=== PATIENT | female | born 1995 | race Caucasian/White ===

== ENCOUNTER → 2024-01-02 18:48 | Outpatient (REF) | payer BC, SELFPAY | LOC: CPAP 18:48 | PROVIDERS: ATTENDING PHYSICIAN Obstetrics & Gynecology | DX: Z01.419 Encounter for gynecological examination (general) (routine) without abnormal findings (principal); Z12.4 Encounter for screening for malignant neoplasm of cervix | CPT/HCPCS: G0123 ==

== ENCOUNTER → 2024-02-18 08:24 | Outpatient (REF) | payer BC, SELFPAY ==
[2024-02-18 10:16] LABS: TSH Reflex To Free T4 3.63 uIU/ml (0.47-4.68)
== END ==
LOC: REG 08:24
PROVIDERS: ATTENDING PHYSICIAN Physician Assistant
DX: E06.3 Autoimmune thyroiditis (principal)
CPT/HCPCS: 36415; 84443

== ENCOUNTER → 2024-09-03 06:38 | Outpatient (REF) | payer BC, SELFPAY ==
[2024-09-03 07:33] LABS: HCG, Serum Qualitative Screen Positive
[2024-09-03 07:55] LABS: Beta HCG Quantitative 73.05 mIU/ml
== END ==
LOC: REG 06:38
PROVIDERS: ATTENDING PHYSICIAN Physician Assistant; OTHER PHYSICIAN Obstetrics & Gynecology
DX: Z32.01 Encounter for pregnancy test, result positive (principal)
CPT/HCPCS: 36415; 84702; 84703

== ENCOUNTER → 2024-09-06 11:24 | Outpatient (REF) | payer BC, SELFPAY ==
[2024-09-06 13:35] LABS: Beta HCG Quantitative 499.71 mIU/ml
== END ==
LOC: REG 11:24
PROVIDERS: ATTENDING PHYSICIAN Physician Assistant
DX: Z32.01 Encounter for pregnancy test, result positive (principal)
CPT/HCPCS: 36415; 84702

== ENCOUNTER → 2024-09-12 06:33 | Outpatient (REF) | payer BC, SELFPAY | LOC: REG 06:33 | PROVIDERS: ATTENDING PHYSICIAN Physician Assistant; OTHER PHYSICIAN Obstetrics & Gynecology | DX: Z34.91 Encounter for supervision of normal pregnancy, unspecified, first trimester (principal) | CPT/HCPCS: 84702 ==

== ENCOUNTER → 2024-10-01 16:27 | Outpatient (REF) | payer BC, SELFPAY | LOC: CPAP 16:27 | PROVIDERS: ATTENDING PHYSICIAN Nurse Practitioner Family | DX: Z11.3 Encounter for screening for infections with a predominantly sexual mode of transmission (principal) | CPT/HCPCS: 87491; 87591 ==

== ENCOUNTER → 2024-10-02 06:42 | Outpatient (REF) | payer BC, SELFPAY ==
[2024-10-02 07:54] LABS: % Basophils 0.5 % (0-2); % Eosinophils 2.2 % (0-6); % Immature Granulocytes 0.4 % (0-0.5); % Lymphocytes 21.9 % (20.5-51.1); % Monocytes 6.5 % (1.7-9.3); % Neutrophils 68.5 % (42.2-75.2); Absolute Eosinophils 0.2 10^3/uL (0-0.7); Absolute Lymphocytes 1.6 10^3/uL (1.2-3.4); Absolute Monocytes 0.5 10^3/uL (0.1-0.6); Absolute Neutrophils 5.1 10^3/uL (1.4-6.5); Hematocrit 36.4 % (37.0-47.0); Hemoglobin 12.3 g/dL (12.0-16.0); Mean Corp Hgb Conc. 33.8 g/dL (33.0-37.0); Mean Corpuscular Hgb 29.8 pg (27.0-31.0); Mean Corpuscular Volume 88.1 fL (81.0-99.0); Mean Platelet Volume 10.1 fL (7.4-10.4); Nucleated Red Blood Cells % 0 %; Platelet Count 250 10^3/uL (130-400); Red Blood Cell Count 4.13 10^6/uL (4.20-5.40); Red Cell Dist. Width 12.5 % (11.5-14.5); White Blood Cell Count 7.4 10^3/uL (4.8-10.8)
[2024-10-02 08:13] LABS: Urine Albumin Negative (Neg - Trace); Urine Bilirubin Negative (Negative); Urine Character Clear (Clear); Urine Color Yellow; Urine Glucose Negative (Negative); Urine Ketone Negative (Negative); Urine Leukocyte 2+ (Negative); Urine Nitrite Negative (Negative); Urine Occult Blood Negative (Negative); Urine Urobilinogen Negative (Neg - 1+); Urine pH 6.5 (5.0-9.0)
[2024-10-02 08:32] LABS: Free T4 0.97 ng/dl (0.78-2.19)
[2024-10-02 08:38] LABS: Urine Mucus Moderate; Urine Squamous Cell 16-20 /LPF (Few); Urine Urothelial Cell 0-2 /LPF (FEW)
[2024-10-02 08:39] LABS: Urine Red Blood Cell 0-2 /HPF (0-2)
[2024-10-02 08:40] LABS: Urine Bacteria Many (Negative)
[2024-10-02 08:46] LABS: TSH 4.74 uIU/ml (0.47-4.68)
[2024-10-02 10:27] LABS: Glycohemoglobin (HgbA1c) 4.8 % (4.0-5.6)
[2024-10-02 12:32] LABS: Rubella Positive
[2024-10-02 12:38] LABS: Syphilis/T. pallidum Ab Reflex Negative (Negative)
[2024-10-02 20:41] LABS: Hepatitis B Surface Antigen Negative (Negative)
== END ==
LOC: REG 06:42
PROVIDERS: ATTENDING PHYSICIAN Nurse Practitioner Family; FAMILY PHYSICIAN Physician Assistant
DX: Z32.01 Encounter for pregnancy test, result positive (principal)
CPT/HCPCS: 80055; 81003; 81015; 83036; 84439; 84443; 84702; 87389

== ENCOUNTER → 2024-10-29 13:37 | Outpatient (REF) | payer BC, SELFPAY ==
[2024-10-29 16:21] LABS: TSH 2.08 uIU/ml (0.47-4.68)
== END ==
LOC: PNTC 13:37
PROVIDERS: ATTENDING PHYSICIAN Student in an Organized Health Care Education/Training Program; FAMILY PHYSICIAN Physician Assistant
DX: Z36.0 Encounter for antenatal screening for chromosomal anomalies (principal); Z36.82 Encounter for antenatal screening for nuchal translucency
CPT/HCPCS: 36415; 76801; 76813; 84443; 86850; 86900; 86901

== ENCOUNTER → 2024-12-24 14:50 | Outpatient (REF) | payer BC, SELFPAY | LOC: PNTC 14:50 | PROVIDERS: ATTENDING PHYSICIAN Student in an Organized Health Care Education/Training Program | DX: O99.210 Obesity complicating pregnancy, unspecified trimester (principal) | CPT/HCPCS: 76811 ==

== ENCOUNTER → 2025-01-09 11:23 | Outpatient (REF) | payer BC, SELFPAY | LOC: PNTC 11:23 | PROVIDERS: ATTENDING PHYSICIAN Student in an Organized Health Care Education/Training Program | DX: O99.210 Obesity complicating pregnancy, unspecified trimester (principal) | CPT/HCPCS: 76815 ==

== ENCOUNTER → 2025-02-02 08:01 | Outpatient (REF) | payer BC, SELFPAY ==
[2025-02-02 09:45] LABS: 1 Hour after 50gm 111 mg/dl
[2025-02-02 09:49] LABS: % Basophils 0.6 % (0-2); % Eosinophils 2.5 % (0-6); % Immature Granulocytes 0.8 % (0-0.5); % Lymphocytes 12.3 % (20.5-51.1); % Monocytes 4.6 % (1.7-9.3); % Neutrophils 79.2 % (42.2-75.2); Absolute Basophils 0.1 10^3/uL (0-0.2); Absolute Eosinophils 0.2 10^3/uL (0-0.7); Absolute Immature Granulocytes 0.1 10^3/uL (0-0.05); Absolute Lymphocytes 1.1 10^3/uL (1.2-3.4); Absolute Monocytes 0.4 10^3/uL (0.1-0.6); Absolute Neutrophils 6.9 10^3/uL (1.4-6.5); Hematocrit 29.2 % (37.0-47.0); Mean Corp Hgb Conc. 34.2 g/dL (33.0-37.0); Mean Corpuscular Hgb 30.5 pg (27.0-31.0); Mean Platelet Volume 10.2 fL (7.4-10.4); Nucleated Red Blood Cells % 0 %; Platelet Count 232 10^3/uL (130-400); Red Blood Cell Count 3.28 10^6/uL (4.20-5.40); Red Cell Dist. Width 12.6 % (11.5-14.5); White Blood Cell Count 8.7 10^3/uL (4.8-10.8)
[2025-02-02 11:00] LABS: TSH Reflex To Free T4 1.91 uIU/ml (0.47-4.68)
== END ==
LOC: REG 08:01
PROVIDERS: ATTENDING PHYSICIAN Obstetrics & Gynecology; FAMILY PHYSICIAN Physician Assistant
DX: Z34.02 Encounter for supervision of normal first pregnancy, second trimester (principal)
CPT/HCPCS: 36415; 82950; 84443; 85025; 86780

== ENCOUNTER → 2025-02-05 15:33 | Outpatient (REF) | payer BC, SELFPAY | LOC: PNTC 15:33 | PROVIDERS: ATTENDING PHYSICIAN Student in an Organized Health Care Education/Training Program | DX: O99.210 Obesity complicating pregnancy, unspecified trimester (principal) | CPT/HCPCS: 76816 ==

== ENCOUNTER → 2025-03-13 16:16 | Outpatient (REF) | payer BC, SELFPAY ==
[2025-03-14 13:32] LABS: Urine Albumin Negative (Neg - Trace); Urine Bilirubin Negative (Negative); Urine Character Slightly Cloudy (Clear); Urine Color Yellow; Urine Glucose Negative (Negative); Urine Ketone Negative (Negative); Urine Leukocyte 3+ (Negative); Urine Nitrite Negative (Negative); Urine Occult Blood 2+ (Negative); Urine Urobilinogen Negative (Neg - 1+)
[2025-03-14 14:35] LABS: Urine Amorphous Seen; Urine Squamous Cell >30 /LPF (Few)
[2025-03-14 14:37] LABS: Urine Bacteria Many (Negative); Urine White Cell 16-20 /HPF (0-5)
[2025-03-14 14:40] LABS: Urine Red Blood Cell 0-2 /HPF (0-2)
== END ==
LOC: CLAB 16:16
PROVIDERS: ATTENDING PHYSICIAN Obstetrics & Gynecology
DX: Z34.03 Encounter for supervision of normal first pregnancy, third trimester (principal)
CPT/HCPCS: 81003; 81015; 87086

== ENCOUNTER → 2025-03-21 15:41 | Outpatient (REF) | payer BC, SELFPAY | LOC: PNTC 15:41 | PROVIDERS: ATTENDING PHYSICIAN Student in an Organized Health Care Education/Training Program | DX: O99.210 Obesity complicating pregnancy, unspecified trimester (principal) | CPT/HCPCS: 76816 ==

== ENCOUNTER → 2025-03-25 15:45 | Outpatient (REF) | payer BC, SELFPAY ==
[2025-03-26 16:21] LABS: Urine Albumin 2+ (Neg - Trace); Urine Bilirubin Negative (Negative); Urine Character Cloudy (Clear); Urine Color Yellow; Urine Glucose Negative (Negative); Urine Ketone Negative (Negative); Urine Leukocyte 3+ (Negative); Urine Nitrite Negative (Negative); Urine Occult Blood Negative (Negative); Urine Specific Gravity 1.025 (<1.030); Urine Urobilinogen Negative (Neg - 1+)
[2025-03-26 16:23] LABS: Urine Squamous Cell >30 /LPF (Few)
[2025-03-26 16:24] LABS: Urine Amorphous Seen; Urine Bacteria Few (Negative)
== END ==
LOC: CLAB 15:45
PROVIDERS: ATTENDING PHYSICIAN Nurse Practitioner Family
DX: Z34.93 Encounter for supervision of normal pregnancy, unspecified, third trimester (principal)
CPT/HCPCS: 81003; 81015; 87086

== ENCOUNTER → 2025-04-15 16:30 | Outpatient (REF) | payer BC, SELFPAY | LOC: CLAB 16:30 | PROVIDERS: ATTENDING PHYSICIAN Obstetrics & Gynecology; FAMILY PHYSICIAN Physician Assistant | DX: Z36.85 Encounter for antenatal screening for Streptococcus B (principal); Z34.90 Encounter for supervision of normal pregnancy, unspecified, unspecified trimester | CPT/HCPCS: 87070 ==

== ENCOUNTER 2025-05-13 19:27 | Inpatient (IN) | payer BC, SELFPAY ==
[2025-05-13 19:48] VITALS: BP 155/92; BMI 36.9
[2025-05-13 20:19] LABS: Hematocrit 26.3 % (37.0-47.0); Hemoglobin 8.8 g/dL (12.0-16.0); Mean Corp Hgb Conc. 33.5 g/dL (33.0-37.0); Mean Corpuscular Volume 79.2 fL (81.0-99.0); Nucleated Red Blood Cells % 0 %; Platelet Count 180 10^3/uL (130-400); Red Cell Dist. Width 13.2 % (11.5-14.5)
[2025-05-13] MEDS: CYTOTEC 25 MICROGRAM VAG (20:36)
[2025-05-13 20:39] LABS: ALT (SGPT) < 10 U/L (0-35); AST (SGOT) 15 U/L (14-36); Albumin 3.3 g/dl (3.5-5.0); Alkaline Phosphatase 157 U/L (38-126); Blood Urea Nitrogen 9 mg/dl (7-17); Calcium 9.1 mg/dl (8.4-10.2); Carbon Dioxide 20 mmol/L (22-30); Chloride 110 mmol/L (98-107); Estimated Creatinine Clearance > 125 ml/min; Glucose 79 mg/dl (70-99); Potassium 4.6 mmol/L (3.5-5.1); Sodium 135 mmol/L (135-145); Total Protein 6.0 g/dl (6.3-8.2); eGFR > 60.00
[2025-05-13 23:33] LABS: Hepatitis C Antibody Negative (Negative)
[2025-05-14] MEDS: CYTOTEC 50 MICROGRAM PO (00:59)
[2025-05-14] MEDS: STADOL 1 MG IV (02:37)
[2025-05-14] MEDS: LR 1000 IV ×3 (02:37→17:08)
[2025-05-14] MEDS: STADOL IV (04:30)
[2025-05-14] MEDS: FENTANYL/BUPIVACAINE 100 EPIDURAL ×3 (05:02→20:10)
[2025-05-14] MEDS: SUBLIMAZE 100 MCG EPIDURAL (05:02)
[2025-05-14] MEDS: CYTOTEC PO ×4 (05:25→17:08)
[2025-05-14] MEDS: SYNTHROID 25 MCG PO (05:43)
[2025-05-14] MEDS: TRANDATE 20 MG IV (10:05)
[2025-05-14] MEDS: PITOCIN 30 UNITS/NSS 500 ML IV (10:11)
[2025-05-14] MEDS: TRANDATE 200 MG PO (10:50)
[2025-05-14] MEDS: APRESOLINE 10 MG IV (18:43)
[2025-05-14] MEDS: MAGNESIUM SULFATE 100 IV (19:13)
[2025-05-14] MEDS: MAGNESIUM SULFATE 40 GRAM 1000 IV (19:40)
[2025-05-14 20:25] LABS: Hematocrit 27.6 % (37.0-47.0); Hemoglobin 9.2 g/dL (12.0-16.0); Mean Corp Hgb Conc. 33.3 g/dL (33.0-37.0); Mean Corpuscular Volume 79.3 fL (81.0-99.0); Platelet Count 182 10^3/uL (130-400); Red Cell Dist. Width 13.7 % (11.5-14.5)
[2025-05-14] MEDS: TYLENOL 1000 MG PO (21:15)
[2025-05-14] MEDS: BICITRA 30 ML PO (21:15)
[2025-05-14] MEDS: ANCEF 10 IV (21:30)
[2025-05-14] MEDS: ZITHROMAX INFUSION 250 IV (21:30)
[2025-05-14] MEDS: HEMABATE 250 MCG IM (23:55)
[2025-05-14] MEDS: CYTOTEC 800 MCG SL (23:55)
[2025-05-15] MEDS: MORPHINE SULFATE 2 MG IV (00:02)
[2025-05-15 00:41] LABS: Hematocrit 24.9 % (37.0-47.0); Hemoglobin 8.2 g/dL (12.0-16.0); Platelet Count 155 10^3/uL (130-400)
[2025-05-15 00:52] LABS: INR 1.14; PT 14.9 Sec (11.4-14.6)
[2025-05-15 00:53] LABS: APTT 30.7 Sec (23.4-35.0); Fibrinogen 388 MG/DL (199-459)
[2025-05-15] MEDS: CYTOTEC PO (00:57)
[2025-05-15] MEDS: TRANDATE 200 MG PO ×3 (01:09→20:08)
[2025-05-15] MEDS: LR 1000 IV ×3 (01:10→21:35)
[2025-05-15] MEDS: PRENATAL PLUS PO ×2 (01:11→11:38)
[2025-05-15] MEDS: ZOFRAN 4 MG IV (04:27)
[2025-05-15 06:25] LABS: Hematocrit 23.2 % (37.0-47.0); Hemoglobin 7.8 g/dL (12.0-16.0); Mean Corp Hgb Conc. 33.6 g/dL (33.0-37.0); Mean Corpuscular Volume 80.3 fL (81.0-99.0); Platelet Count 157 10^3/uL (130-400); Red Cell Dist. Width 13.6 % (11.5-14.5)
[2025-05-15 06:33] LABS: ALT (SGPT) 22 U/L (0-35); AST (SGOT) 42 U/L (14-36); Albumin 2.6 g/dl (3.5-5.0); Alkaline Phosphatase 120 U/L (38-126); Blood Urea Nitrogen 10 mg/dl (7-17); Calcium 8.4 mg/dl (8.4-10.2); Carbon Dioxide 18 mmol/L (22-30); Chloride 109 mmol/L (98-107); Estimated Creatinine Clearance 100 ml/min; Glucose 118 mg/dl (70-99); Potassium 4.8 mmol/L (3.5-5.1); Sodium 130 mmol/L (135-145); Total Protein 5.0 g/dl (6.3-8.2); eGFR > 60.00
--- NOTE | 2025-05-15 07:41 | W.PN.ANS.POP ---
Anesthesia Post Operative
- Anesthesia Post Op Note
Vital Signs Stable-See Nursing Note: Yes
Airway Patent: Yes
Adequate Pain Control: Yes
Change in Mental Status: No
Current Postoperative Nausea & Vomiting: No
Anesthesia Complications: No
General Anesthetic Recall: No
Unplanned Admission: No
Post Op Hydration Adequate: Yes
[2025-05-15] MEDS: BENADRYL 25 MG IV (08:04)
[2025-05-15] MEDS: MAGNESIUM SULFATE 40 GRAM 1000 IV (09:36)
[2025-05-15] MEDS: SYNTHROID 25 MCG PO (09:39)
[2025-05-15] MEDS: TORADOL 15 MG IV (14:44)
[2025-05-15] MEDS: FERRLECIT 110 MG IV (15:11)
[2025-05-15] MEDS: TYLENOL 650 MG PO (22:56)
[2025-05-15] MEDS: MOTRIN 600 MG PO (22:56)
[2025-05-16] MEDS: SYNTHROID 25 MCG PO (05:47)
[2025-05-16] MEDS: TYLENOL 650 MG PO ×2 (06:00→14:47)
[2025-05-16] MEDS: MOTRIN 600 MG PO ×2 (06:00→14:47)
[2025-05-16] MEDS: PRENATAL PLUS 1 TABLET PO (07:49)
[2025-05-16] MEDS: SENOKOT-S 1 TABLET PO (07:50)
[2025-05-16] MEDS: TRANDATE 200 MG PO ×2 (07:50→19:53)
[2025-05-16] MEDS: FERRLECIT 110 MG IV (13:43)
[2025-05-16 14:28] LABS: Syphilis/T. pallidum Ab Reflex Negative (Negative)
[2025-05-17] MEDS: MOTRIN 600 MG PO ×2 (04:08→11:57)
[2025-05-17] MEDS: TYLENOL 650 MG PO ×2 (04:09→11:56)
[2025-05-17] MEDS: TRANDATE 200 MG PO (05:08)
[2025-05-17 05:54] LABS: Hematocrit 19.4 % (37.0-47.0); Hemoglobin 6.2 g/dL (12.0-16.0); Mean Corp Hgb Conc. 32.0 g/dL (33.0-37.0); Mean Corpuscular Volume 81.9 fL (81.0-99.0); Nucleated Red Blood Cells % 0.2 %; Platelet Count 169 10^3/uL (130-400); Red Cell Dist. Width 14.2 % (11.5-14.5)
[2025-05-17 06:01] LABS: ALT (SGPT) 21 U/L (0-35); AST (SGOT) 27 U/L (14-36); Albumin 2.6 g/dl (3.5-5.0); Alkaline Phosphatase 111 U/L (38-126); Blood Urea Nitrogen 13 mg/dl (7-17); Calcium 8.6 mg/dl (8.4-10.2); Carbon Dioxide 23 mmol/L (22-30); Chloride 111 mmol/L (98-107); Estimated Creatinine Clearance 100 ml/min; Glucose 74 mg/dl (70-99); Potassium 4.5 mmol/L (3.5-5.1); Sodium 137 mmol/L (135-145); Total Protein 5.0 g/dl (6.3-8.2); eGFR > 60.00
[2025-05-17] MEDS: SYNTHROID 25 MCG PO (06:16)
[2025-05-17 07:29] VITALS: BP 151/75
[2025-05-17 07:45] VITALS: BP 160/90
[2025-05-17 08:54] VITALS: BP 173/89
[2025-05-17] MEDS: APRESOLINE 10 MG IV (09:06)
--- NOTE | 2025-05-17 09:30 | CON.CAR ---
Consultation
Consultation Request
Date/Time Consultation Requested: May 17, 2025 9 AM
Date/Time Consultation Performed: May 17, 2025 9 AM
Requesting Provider: MARINE FIREMAN
Performing Provider: Dr Festus Ellsworth
Reason for Consultation: hypertensive urgency
Medical History
-
Chief Complaint: Hypertension
History of Present Illness:
30-year-old woman who delivered her first child on May 14, 2025, healthy baby girl.
She has been diagnosed with eclampsia and cardiology has been asked to assist with blood pressure management
Past Medical History
Past Medical History: None
Past Surgical History: None
Social History
Tobacco: Non-Smoker
Alcohol: None
Drug: None
Personal:
Living: With Family
Family History
Family History: Reviewed & Not Pertinent
Allergies / Home Medications
Allergy/AdvReac Type Severity Reaction Status Date / Time
clindamycin Allergy Hives Verified 05/13/25 19:57
�Medication �Instructions �Recorded �Confirmed �Type
budesonide 180 mcg/actuation 2 inh inhalation DAILY 05/13/25 05/13/25 History
breath activated powder inhaler
(Pulmicort Flexhaler)
iron 40 mg capsule 1 mg PO DAILY 05/13/25 05/13/25 History
levothyroxine 25 mcg tablet 25 mcg PO DAILY 05/13/25 05/13/25 History
prenat.vits,virginie,dpr-xscl-eimfc 1 tab PO DAILY 05/13/25 05/13/25 History
Review of Systems
-
History Source: Patient
All other systems: Negative unless noted
Constitutional: Fatigue
EENT: No Symptoms
Respiratory: No Symptoms
Cardiac: No Symptoms
Abdomen/GI: No Symptoms
: No Symptoms
Musculoskeletal: No Symptoms
Skin: No Symptoms
Neurological: No Symptoms
Endocrine: No Symptoms
Physical Exam
Vital Signs
Temp Pulse Resp BP
98.3 F 60 18 170/81
05/17/25 08:54 05/17/25 09:06 05/17/25 08:54 05/17/25 09:06
Lab Results
05/17/25 05:10
05/17/25 05:10
Physical Exam
General: Well Developed, Well Nourished, No Apparent Distress and Comfortable
HEENT: Normocephalic, Anicteric and Moist Mucous Membranes
Respiratory: Clear and Non Labored Respirations
Cardiac: S1/S2, Regular Rhythm and Other (No S2 no S3. There is a grade 1/6 apical holosystolic murmur and no rubs. PMI is normally placed)
Breast: Deferred by me
Rectal: Deferred by Provider
Musculoskeletal: Edema (There is trace pretibial edema bilateral)
Skin: Warm and Dry
Neuro: Awake, Alert, Oriented and AO x 3
Psych: Calm
Impression / Plan
-
Impression/recommendations:
She is hypertensive peripartum and given the diagnosis of eclampsia. No pre-existing diagnosis or history of hypertension.
She was started on labetalol 200 mg twice daily with some improvement but is also required as needed hydralazine.
- Increase labetalol to 300 mg twice daily (hold heart rate less than 50 bpm), she received the 200 mg dose this morning at 5 AM, will give 300 mg today at 2 PM
- Goal acute blood pressure would be systolic less than 160 and diastolic less than 90�100
- If we can achieve goal blood pressure by 5 PM, I would have no objection to discharge home
Of note, she is also planned for 1 unit packed red blood cell transfusion given her anemia
Data Reviewed
-
EKG: Tracing Personally Visualized and interpreted (Sinus rhythm at 65 bpm, normal ECG)
Labs: Labs Reviewed by me
[2025-05-17] MEDS: PRENATAL PLUS 1 TABLET PO (11:57)
[2025-05-17] MEDS: SENOKOT-S 1 TABLET PO (11:57)
[2025-05-17] MEDS: FERRLECIT 110 MG IV (14:06)
[2025-05-17] MEDS: TRANDATE 300 MG PO (14:07)
[2025-05-17] MEDS: PROCARDIA XL (EXTENDED RELEASE) 30 MG PO (17:23)
[2025-05-18] MEDS: SYNTHROID 25 MCG PO (05:49)
[2025-05-18] MEDS: TRANDATE 300 MG PO (07:44)
[2025-05-18] MEDS: PROCARDIA XL (EXTENDED RELEASE) 30 MG PO (07:44)
[2025-05-18] MEDS: PRENATAL PLUS 1 TABLET PO (07:44)
--- NOTE | 2025-05-18 09:54 | W.DS.TRANS ---
DC Summary - Mold Blower
-
Discharge Instructions:
Discharge Diagnosis/Procedures section, pre-eclampsia with severe
range blood pressure, anemia
Instructions:
Stand-Alone Forms: LDRP Delivery
LDRP Hypertensive Disorders
Changes to Home Medications: No
Discharge Medications:
DC Medications w/original date entered in [employer]
budesonide 180 mcg/actuation breath activated powder inhaler (Pulmicort Flexhaler) 2 inh inhalation DAILY 05/13/25
iron 40 mg capsule 1 mg PO DAILY 05/13/25
levothyroxine 25 mcg tablet 25 mcg PO DAILY 05/13/25
prenat.vits,virginie,lox-giuz-tjxoc 1 tab PO DAILY 05/13/25
acetaminophen 325 mg tablet 650 mg (2 x 325 mg) PO Q4HPRN PRN mild pain #0 tabs 05/17/25
calcium carbonate (Calcium Antacid) 400 mg (2 x 200 mg calcium (500 mg)) PO Q6HPRN PRN indigestion #0 tabs 05/17/25
ibuprofen 600 mg tablet 600 mg PO Q6HPRN PRN cramps #30 tabs 05/17/25
labetalol 100 mg tablet 300 mg (3 x 100 mg) PO BID #180 tabs 05/17/25
sennosides 8.6 mg-docusate sodium 50 mg tablet 1 tab PO DAILYPRN PRN constipation #0 tabs 05/17/25
simethicone 80 mg chewable tablet 80 mg PO TIDPRN PRN flatulence #0 tabs 05/17/25
nifedipine 30 mg tablet,extended release 30 mg PO DAILY #60 tabs 05/18/25
Home Medication Changes
Pending Results: No
== END 2025-05-18 09:27 | disposition home or self-care (01) | DRG 787 ==
LOC: LDRP 19:27
PROVIDERS: Obstetrics & Gynecology; ADMITTING PHYSICIAN Obstetrics & Gynecology; CONSULT PHYSICIAN Internal Medicine Cardiovascular Disease; FAMILY PHYSICIAN Physician Assistant
PROC: 3E0P7VZ Introduction of Hormone into Female Reproductive, Via Natural or Artificial Opening (ICD-10-PCS; 2025-05-13)
PROC: 3E033VJ Introduction of Other Hormone into Peripheral Vein, Percutaneous Approach (ICD-10-PCS; 2025-05-14)
PROC: 10D00Z1 Extraction of Products of Conception, Low, Open Approach (ICD-10-PCS; 2025-05-14)
PROC: 30233N1 Transfusion of Nonautologous Red Blood Cells into Peripheral Vein, Percutaneous Approach (ICD-10-PCS; 2025-05-17)
DX: O48.0 Post-term pregnancy (principal); O72.1 Other immediate postpartum hemorrhage; O14.14 Severe pre-eclampsia complicating childbirth; Z37.0 Single live birth; O62.1 Secondary uterine inertia; Z3A.40 40 weeks gestation of pregnancy; O90.81 Anemia of the puerperium; D64.9 Anemia, unspecified; O99.214 Obesity complicating childbirth; O99.284 Endocrine, nutritional and metabolic diseases complicating childbirth; E03.9 Hypothyroidism, unspecified; O76 Abnormality in fetal heart rate and rhythm complicating labor and delivery
CPT/HCPCS: 36415; 80053; 85014; 85018; 85025; 85027; 85049; 85384; 85610; 85730; 86780; 86803; 86850; 86900; 86901; 86920; 88307; 93005; J2916; P9016

== ENCOUNTER 2025-08-14 04:03 | Emergency (ER) | payer BC, SELFPAY ==
[2025-08-14 04:11] VITALS: BP 135/96
[2025-08-14 04:46] LABS: Hematocrit 34.8 % (37.0-47.0); Hemoglobin 11.6 g/dL (12.0-16.0); Mean Corp Hgb Conc. 33.3 g/dL (33.0-37.0); Mean Corpuscular Volume 82.7 fL (81.0-99.0); Nucleated Red Blood Cells % 0 %; Platelet Count 263 10^3/uL (130-400); Red Cell Dist. Width 14.1 % (11.5-14.5)
[2025-08-14 04:56] LABS: Urine Character Clear (Clear)
[2025-08-14 05:00] LABS: HCG, Serum Qualitative Screen Negative
[2025-08-14 05:04] LABS: ALT (SGPT) 68 U/L (0-35); AST (SGOT) 52 U/L (14-36); Albumin 4.3 g/dl (3.5-5.0); Alkaline Phosphatase 186 U/L (38-126); Blood Urea Nitrogen 12 mg/dl (7-17); Calcium 9.1 mg/dl (8.4-10.2); Carbon Dioxide 26 mmol/L (22-30); Chloride 104 mmol/L (98-107); Glucose 110 mg/dl (70-99); Potassium 4.0 mmol/L (3.5-5.1); Sodium 136 mmol/L (135-145); Total Protein 7.0 g/dl (6.3-8.2); eGFR > 60.00
[2025-08-14 05:09] VITALS: BP 135/85
[2025-08-14 05:10] VITALS: BMI 32.0
[2025-08-14 05:16] LABS: Urine Red Blood Cell 0-2 /HPF (0-2); Urine White Cell 0-2 /HPF (0-5)
[2025-08-14 06:00] VITALS: BP 128/85
[2025-08-14] MEDS: ZOFRAN 4 MG IV (06:20)
[2025-08-14] MEDS: NSS 1000 IV (06:20)
[2025-08-14] MEDS: TORADOL 30 MG IV (06:21)
--- NOTE | 2025-08-14 07:05 | ED.GENMED ---
History of Present Illness
General
Chief Complaint: Flank Pain
Source: patient
Time Seen by Provider: 08/14/25 06:05
History of Present Illness
History of Present Illness:
30-year-old female with past medical history of asthma and Merritt's thyroiditis presenting to the emergency department for evaluation of a sudden onset of left flank pain since 2 AM accompanied with nausea but no vomiting, since 2 AM pain is now
radiating into the lower groin/abdomen similar to multiple previous episodes of kidney stones. Pain is described to be constant but does wax and wane in intensity, currently 8 out of 10, did not take anything for pain prior to arrival. Patient
denies any urinary symptoms including dysuria, hematuria, frequency or urgency, no bowel changes, no vaginal bleeding or discharge. Patient is 3 months status post section, no complications from delivery. She notes she is
bottlefeeding, no breast-feeding.
Past History
Past History
ED Past Medical History: Asthma and Hypothyroidism
ED Past Surgical History:
Social History
Tobacco: Non-smoker
Alcohol: None
Drug: None
Personal:
Living: with family
Review of Systems
Review of Systems
All Other Systems: ROS reviewed and negative except as documented in HPI and ROS
Phy Exam
Physical Exam
Physical Exam:
GENERAL: Alert , in no apparent distress
EYE: clear conjunctiva b/l
HEAD: NCAT
ENT: o/p clr, mmm.
CARDIAC: Regular rate and rhythm .
LUNGS: Clear breath sounds bilaterally, no acute respiratory distress, no wheezes/rales/rhonchi
ABDOMEN: Soft, mildly tender left flank, no r/g, negative Torres sign, no tenderness at McBurney's point
NEUROLOGICAL: Alert and oriented
SKIN: Warm and dry, skin intact.
MUSCULOSKELETAL: well perfused.
PSYCH: Normal and appropriate interaction.
Scores
Heart Failure Risk
Heart Failure Risk Score: Not Applicable
Heart Score for Chest Pain Patients
STEMI patient?: Not applicable
Withdrawal Assessment of Alcohol
Withdrawal Assessment Completed?: Not applicable
Course
Orders/Labs/Results
Orders:
Orders
08/14/25 04:16
Test Result ONCE
08/14/25 04:29
Complete Blood Count/With Diff Urgent
Comprehensive Metabolic Panel Urgent
HCG, Serum Qualitative Screen Urgent
Comment: .
Urine Culture Reflexed from UA [Urinalysis Reflex To Culture] Urgent
Date Specimen was Collected: 08/14/25
Time Specimen was Collected: 04:16
Urine Microscopic Reflex Cult Urgent
Urine Culture Urgent
ALVIN Source: U
Specimen Description:
Date Specimen was Collected: 08/14/25
Time Specimen was Collected: 04:16
08/14/25 06:12
0.9% Sodium Chloride 1000 ml [Nss] 1,000 ml IV BOLUS
Ketorolac [Toradol] 30 mg IV NOW STA
Ondansetron Injectable [Zofran] 4 mg IV NOW STA
08/14/25 06:25
CT Abd/pel Without Iv Or Oral Urgent
Comment:
Reason For Exam: left flank pain, hx stones
Abnormal Lab Results
08/14/25
04:29
Hgb 11.6 L g/dL
(12.0-16.0)
Hct 34.8 L %
(37.0-47.0)
Lymphocytes % 20.2 L %
(20.5-51.1)
Glucose 110 H mg/dl
(70-99)
AST 52 H U/L
(14-36)
ALT 68 H U/L
(0-35)
Alkaline Phosphatase 186 H U/L
(38-126)
Ur Occult Blood Reflex 1+ A
(Negative)
Leukocyte Esterase Rfl 2+ A
(Negative)
Urine Albumin (Reflex) 2+ A
(Neg - Trace)
08/14/25 04:29
08/14/25 04:29
Vital Signs
Initial and Last Documented VS:
Initial Vital Signs
Temp Pulse Resp BP Pulse Ox
98.1 F 82 20 135/96 100
08/14/25 04:11 08/14/25 04:11 08/14/25 04:11 08/14/25 04:11 08/14/25 04:11
Last Documented Vital Signs
Temp Pulse Resp BP Pulse Ox
97.9 F 72 16 126/75 99
08/14/25 08:00 08/14/25 08:00 08/14/25 08:00 08/14/25 08:00 08/14/25 08:00
MDM/Problems Addressed
Differential Diagnosis Includes:
Renal/ureteral colic
Ovarian cyst
Ovarian torsion
Urinary tract infection
Ectopic
Musculoskeletal back pain
MDM/Problems Addressed:
30-year-old female presenting to the ER for evaluation of sudden onset left flank pain, history of kidney stones in the past stating this pain feels exactly the same as previous stones. Did not take anything for pain prior to arrival. Will treat
with Toradol and Zofran. Labs and urine ordered. Reassessment following.
*Radiology
Radiology exam reviewed: radiology read reviewed
*Pulse Oximetry
SaO2: 99
Oxygen Mode of Delivery: Room air
Patient hypoxic: no
*Critical Care Note
Total Time (30-74mins, 75-104mins- exclusive of procedures): Not Applicable
Comment
Comment:
Patient does report some relief of symptoms with medications. Lab findings reviewed showing mild elevated LFTs. Patient informed of these findings and that she would need close monitoring of this. Urine with 1+ microscopic hematuria and 2+
leukocytes however there are no white blood cells in the urine and increased squamous cells.
Patient Management
Escalation/DeEscalation of care consider admission/obs:
Patient CT scan shows a 3 mm stone at the left UVJ, nearly within the urinary bladder. Other incidental findings discussed, patient provided with a printout of CT report. She notes pain and nausea are significantly improved and feels comfortable
being discharged home. A prescription for naproxen, Zofran and Flomax were sent to the pharmacy. Patient aware of return precautions to the ER. Information for urology was provided.
ED Attending Note
-
Portions of this chart may have been created with voice recognition software.� Occasional wrong word or��sound alike� substitutions may have occurred due to the inherent limitations of voice recognition software.
Discharge Plan
Departure
Patient Disposition: Home (Routine Discharge)
Date of Disposition: 08/14/25
Time of Disposition: 07:31
Patient with high blood pressure during this ER visit?: Yes
Discharge Problem:
Kidney stone on left side
Instructions: Kidney Stones (DC)
Prescriptions:
New
naproxen 500 mg tablet
500 mg PO BID PRN (Reason: Pain) Qty: 15 0RF
tamsulosin [Flomax] 0.4 mg capsule
0.4 mg PO DAILY Qty: 10 0RF
ondansetron 4 mg tablet,disintegrating
4 mg PO TIDPRN PRN (Reason: nausea/vomiting) Qty: 10 0RF
No Action
levothyroxine 25 mcg Tablet
25 mcg PO DAILY
iron 40 mg Capsule
1 mg PO DAILY
prenat.vits,virginie,ctf-ykun-cyvjz Tablet
1 tab PO DAILY
Pulmicort Flexhaler 180 mcg/actuation Aerosol Powdr Breath Activated
2 inh INHALATION DAILY
acetaminophen 325 mg Tablet
650 mg PO Q4HPRN PRN (Reason: mild pain) Qty: 0 0RF
sennosides-docusate sodium 8.6-50 mg Tablet
1 tab PO DAILYPRN PRN (Reason: constipation) Qty: 0 0RF
calcium carbonate [Calcium Antacid] 200 mg calcium (500 mg) Tablet,Chewable
400 mg PO Q6HPRN PRN (Reason: indigestion) Qty: 0 0RF
ibuprofen 600 mg Tablet
600 mg PO Q6HPRN PRN (Reason: cramps) Qty: 30 0RF
labetalol 100 mg Tablet
300 mg PO BID Qty: 180 1RF
simethicone 80 mg Tablet,Chewable
80 mg PO TIDPRN PRN (Reason: flatulence) Qty: 0 0RF
nifedipine 30 mg Tablet Extended Release
30 mg PO DAILY Qty: 60 0RF
Referrals:
Yonny Drwe MD [Active, Urology]
Davina Thornton PA [Family Provider, Family Practice]
Interventions
Interventions:
*Risk Screen - Suicide Last Done: 08/14/25 04:11
*General Assessment Last Done: 08/14/25 04:11
*Neglect/Abuse Screening Last Done: 08/14/25 04:11
*ED- Fall Risk Assessment Last Done: 08/14/25 04:11
*ED COVID-19 Vaccine History Last Done: 08/14/25 04:11
*ED Influenza Vaccine History Last Done: 08/14/25 05:10
*Nursing Disposition Last Done: 08/14/25 08:00
IC-Tkadhe-Thdndbiipw Assessment Last Done: 08/14/25 05:10
ED-Female Genitourinary Assessment Last Done: 08/14/25 05:10
Discharge Date and Time
Discharge Date/Time: 08/14/25 08:01
Print Language: MONGOLIAN
[2025-08-14 08:00] VITALS: BP 126/75
== END 2025-08-14 08:01 | disposition home or self-care (01) ==
LOC: EMR 04:03
PROVIDERS: Student in an Organized Health Care Education/Training Program; EMERGENCY PHYSICIAN Emergency Medicine; FAMILY PHYSICIAN Physician Assistant
DX: N13.2 Hydronephrosis with renal and ureteral calculous obstruction (principal); R79.89 Other specified abnormal findings of blood chemistry; R03.0 Elevated blood-pressure reading, without diagnosis of hypertension; J45.909 Unspecified asthma, uncomplicated; E06.3 Autoimmune thyroiditis; Z87.442 Personal history of urinary calculi
CPT/HCPCS: 99284; 96374; 96375; 96361; 74176; 80053; 81003; 81015; 84703; 85025; 87086